=== PATIENT | male | born 1990 | race Caucasian/White ===

== ENCOUNTER 2019-11-20 12:46 | Emergency (ER) | payer OTHER ==
[2019-11-20 12:52] VITALS: BP 127/68; PULSE 68; RESP 16; TEMP 98.6
[2019-11-20] MEDS ORDERED: ceFAZolin 1,000 MG VIAL (IM USE) IM STA (13:20)
[2019-11-20] MEDS ORDERED: DIPH,PERTUS(ACELL)TETVAC-LF 0.5 ML VIAL IM ONE (13:20)
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
--- NOTE | 2019-11-20 13:51 | XR ---
EXAMINATION TYPE: XR finger RT DATE OF EXAM: 11/20/2019 COMPARISON: None HISTORY: Laceration TECHNIQUE: Three-view right index finger FINDINGS: There is a comminuted fracture of the tuft of the right index finger. Soft tissue injury is evident at the index finger distal pad. Mild soft tissue swelling is present. IMPRESSION: 1. Nondisplaced comminuted tuft fracture index finger 2. Soft tissue injury. 3. Soft tissue swelling. 4. No radiopaque foreign bodies
[2019-11-20] MEDS ORDERED: LIDOCAINE 1% INJ 10MG/ML (20 ML MDV) SQ ONE (14:29)
== END 2019-11-20 14:40 | disposition home or self-care (01) ==
LOC: EC 12:46
DX: S62.630B Displaced fracture of distal phalanx of right index finger, initial encounter for open fracture (principal); F17.200 Nicotine dependence, unspecified, uncomplicated; Z91.048 Other nonmedicinal substance allergy status; Z23 Encounter for immunization; W26.8XXA Contact with other sharp object(s), not elsewhere classified, initial encounter; Y93.89 Activity, other specified; Y92.89 Other specified places as the place of occurrence of the external cause
CPT/HCPCS: 73140; 90715; 99283; 12001; 96372; 90471; J0690; J2001

== ENCOUNTER 2024-06-23 04:28 | Emergency (ER) | payer OTHER ==
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
[2024-06-23] MEDS: SODIUM CHLORIDE 0.9% 1,000 ML IV STA (04:59)
[2024-06-23] MEDS: LORazepam 2 MG/ML INJ IV STA (05:00)
[2024-06-23] MEDS: NICOTINE 21MG/24HR PATCH TRANSDERM STA (05:13)
[2024-06-23 05:16] LABS: Basophils % (A) 0 %; Eosinophils # (A) 0.3 k/uL (0-0.7); Eosinophils % (A) 4 %; HCT 46.3 % (39.0-53.0); HGB 15.2 gm/dL (13.0-17.5); Lymphocytes # (A) 1.3 k/uL (1.0-4.8); Lymphocytes % (A) 17 %; MCH 32.5 pg (25.0-35.0); MCHC 32.9 g/dL (31.0-37.0); MCV 98.8 fL (80.0-100.0); Mean Platelet Volume 8.6; Monocytes # (A) 0.6 k/uL (0-1.0); Monocytes % (A) 9 %; Neutrophils # (A) 4.9 k/uL (1.3-7.7); Neutrophils % (A) 68 %; Platelet Count 185 k/uL (150-450); RBC 4.69 m/uL (4.30-5.90); RDW 13.1 % (11.5-15.5); WBC 7.2 k/uL (3.8-10.6)
[2024-06-23 05:26] LABS: ALT 37 U/L (4-49); AST 66 U/L (17-59); African American GFR (CKD) >90 (>60 ml/min/1.73 sqM); Alkaline Phosphatase 53 U/L (38-126); Anion Gap 8 mmol/L; Blood Urea Nitrogen 18 mg/dL (9-20); Calcium 9.3 mg/dL (8.4-10.2); Carbon Dioxide 26 mmol/L (22-30); Chloride 108 mmol/L (98-107); Glucose 86 mg/dL (74-99); Lipase 248 U/L (23-300); Magnesium 1.7 mg/dL (1.6-2.3); Non-African American GFR(CKD) >90 (>60 ml/min/1.73 sqM); Phosphorus 3.1 mg/dL (2.5-4.5); Potassium 4.2 mmol/L (3.5-5.1); Sodium 142 mmol/L (137-145); Total Bilirubin 0.6 mg/dL (0.2-1.3); Total Protein 7.5 g/dL (6.3-8.2)
[2024-06-23 05:34] LABS: Alcohol 174 mg/dL
[2024-06-23 10:46] VITALS: BP 152/94; PULSE 86; RESP 18; TEMP 98.6
== END 2024-06-23 10:46 | disposition home or self-care (01) ==
LOC: EC 04:28
DX: F10.129 Alcohol abuse with intoxication, unspecified (principal); Z91.041 Radiographic dye allergy status; Y90.6 Blood alcohol level of 120-199 mg/100 ml
CPT/HCPCS: 82075; 36415; 80053; 82140; 83690; 83735; 84100; 85025; 80320; 99284; 96374; 96361 ×3; S4990; J2060